=== PATIENT | female | born 1995 | race Caucasian/White ===

== ENCOUNTER 2017-06-17 17:24 | Emergency (ER) | payer OTHER ==
[2017-06-17 17:29] VITALS: BP 109/53; PULSE 77; RESP 20; TEMP 97.7
[2017-06-17] MEDS ORDERED: IBUPROFEN 600 MG TAB PO STA (17:50)
--- NOTE | 2017-06-17 18:08 | XR ---
EXAMINATION TYPE: XR ankle complete RT, XR foot complete RT DATE OF EXAM: 06/17/2017 CLINICAL HISTORY: Pain and swelling after fall injury today. TECHNIQUE: Frontal, lateral and oblique images of the right ankle and foot are obtained. COMPARISON: None. FINDINGS: There is no acute fracture/dislocation evident in the right ankle. The ankle mortise appe ars within normal limits. The overlying soft tissue appears unremarkable. There is no acute fracture or dislocation evident in the right foot. The joint spaces in the right f oot are preserved. Flexion in the toes is present. Overlying soft tissue is unremarkable. IMPRESSION: There is no acute fracture or dislocation in the right ankle or foot.
--- NOTE | 2017-06-17 18:37 | ED ---
General Adult HPI - General Chief complaint: Extremity Injury, Lower Stated complaint: rt ankle injury Time Seen by Provider: 06/17/17 17:44 Source: patient, RN notes reviewed Mode of arrival: ambulatory Limitations: physical limitation - History of Present Illness Initial comments: 22-year-old female presents to the emergency department for a chief complaint of right foot and ankle pain 3 hours. Patient states she was walking when she twisted her right ankle. Patient states she walked quite a ways on it and it started hurting. Patient states she kept it elevated at home but the pain worsened. Patient has not taken Motrin or Tylenol and did not ice it before coming to the emergency department. Patient denies any other injuries occurring from this. Patient did not hit her head or lose consciousness. She did not fall due to dizziness. Patient has no other complaints at this time including shortness of breath, chest pain, abdominal pain, nausea or vomiting, headache, or visual changes. - Related Data Home Medications Medication Instructions Recorded Confirmed Albuterol Inhaler [Ventolin Hfa 1 - 2 puff INHALATION RT-Q6H PRN 06/17/17 Inhaler] Budesonide/Formoterol Fumarate 2 puff INHALATION RT-BID 06/17/17 06/17/17 [Symbicort 160-4.5 Mcg Inhaler] Montelukast [Singulair] 10 mg PO DAILY 06/17/17 06/17/17 Previous Rx's Medication Instructions Recorded Ibuprofen [Motrin] 600 mg PO Q8HR PRN #20 tab 06/17/17 Allergies Allergy/AdvReac Type Severity Reaction Status Date / Time azithromycin [From Zithromax] Allergy Unknown Verified 06/17/17 18:06 ondansetron [From Zofran] Allergy Unknown Verified 06/17/17 18:06 Review of Systems ROS Statement: Those systems with pertinent positive or pertinent negative responses have been documented in the HPI. ROS Other: All systems not noted in ROS Statement are negative. Past Medical History Past Medical History: Asthma History of Any Multi-Drug Resistant Organisms: None Reported Past Surgical History: Ear Surgery, Orthopedic Surgery Past Psychological History: Anxiety Smoking Status: Never smoker Past Alcohol Use History: None Reported Past Drug Use History: None Reported General Exam Limitations: physical limitation General appearance: alert, in no apparent distress Head exam: Present: atraumatic, normocephalic, normal inspection Neck exam: Present: normal inspection, full ROM. Absent: tenderness, meningismus, lymphadenopathy Respiratory exam: Present: normal lung sounds bilaterally. Absent: respiratory distress, wheezes, rales, rhonchi, stridor Cardiovascular Exam: Present: regular rate, normal rhythm, normal heart sounds. Absent: systolic murmur, diastolic murmur, rubs, gallop, clicks Extremities exam: Present: tenderness (Patient complains of generalized tenderness in the ankle and foot. She does not allow me to touch her foot to properly examine it and says it hurts everywhere. Tenderness cannot be pinpointed.), normal capillary refill (Refill less than 2 seconds in the right lower extremity and pedal pulse 2+.), joint swelling (There is mild swelling inferior to the lateral malleolus on the right ankle), other. Absent: full ROM (Patient has limited range of motion in the left ankle and foot but she is able to move her toes and foot.), pedal edema, calf tenderness Course Vital Signs 06/17/17 17:27 Temperature 97.7 F Pulse Rate 77 Respiratory 20 Rate Blood Pressure 109/53 O2 Sat by Pulse 98 Oximetry Medical Decision Making - Medical Decision Making 22-year-old female presents to the emergency department for a chief complaint of right foot and ankle pain x 3 hours. Patient was walking when she rolled her right ankle. Patient walked on it for quite a ways afterwards. Patient then went home and rested it. She did not take Motrin or ice it. Patient came to the emergency department because it was hurting her. On exam patient will not allow me to touch the foot to examine it. She does have some lateral swelling below the lateral malleolus. She is able to move her toes but will not do full range of motion due to fear of pain. Pedal pulse 2+ and cap refill less than 2 seconds. Sensation intact. X-ray of the foot and ankle demonstrate no acute fractures or bony abnormalities. X-ray was reviewed by myself and Dr. Hutchins, after being read by the radiologist. Patients ankle was wrapped with an Eddi wrap. She was educated on the Rice method of therapy. She will take Motrin and Tylenol for pain. She will follow-up with primary care in 1-2 days. If symptoms worsen she will return to the emergency department. Disposition Clinical Impression: Ankle sprain Disposition: HOME SELF-CARE Condition: Good Instructions: Ankle Sprain (ED), RICE Therapy (ED) Additional Instructions: Please wrap, ice, rest, and elevate the right foot and ankle. Take Motrin and Tylenol for pain. Return to the emergency department if you have any worsening symptoms. Otherwise follow-up with your primary care physician in 1-2 days. Prescriptions: Ibuprofen [Motrin] 600 mg PO Q8HR PRN #20 tab PRN Reason: Pain Is patient prescribed a controlled substance at d/c from ED?: No Referrals: Dominguez Pena MD [Primary Care Provider] - 1-2 days Time of Disposition: 18:35
== END 2017-06-17 18:51 | disposition home or self-care (01) ==
LOC: EC 17:24
DX: S93.401A Sprain of unspecified ligament of right ankle, initial encounter (principal); J45.909 Unspecified asthma, uncomplicated; Z79.51 Long term (current) use of inhaled steroids; Z79.899 Other long term (current) drug therapy; Z88.1 Allergy status to other antibiotic agents; Z88.8 Allergy status to other drugs, medicaments and biological substances; X50.1XXA Overexertion from prolonged static or awkward postures, initial encounter; Y93.01 Activity, walking, marching and hiking; Y92.89 Other specified places as the place of occurrence of the external cause
CPT/HCPCS: 99283

== ENCOUNTER → 2017-07-13 | Outpatient (CLI) | payer OTHER ==
--- NOTE | 2017-07-14 07:29 | CT ---
EXAMINATION TYPE: CT brain wo/w con DATE OF EXAM: 07/13/2017 COMPARISON: NONE HISTORY: Short term memory loss CT DLP: 1505.2 mGycm, Automated exposure control for dose reduction was used. CONTRAST: Patient injected with 100 mL of Isovue 300. CT of the brain is performed utilizing 3 mm thick sections through the posterior fossa and 3 mm thick sections through the remaining calvarium. Study is performed within 24 hours of arrival to the hospital. No abnormal hyperdensity is present to suggest an acute intracranial hemorrhage. No mass lesion is evident. No acute infarcts are evident. No abnormal enhancement is evident. Ventricles and sulci are appropriate for the patient age. Paranasal sinuses and mastoid air cells within the [id number] are clear. IMPRESSIONS: 1. Normal pre and postcontrast CT brain. CT cervical spine. COMPARISON: None CT of the cervical spine is performed in the axial plane at 2 mm thick sections. Reconstructed image s in the coronal, and sagittal plane are reviewed on the computer. No acute fractures are evident. Vertebral body alignment is normal. Disc heights are preserved. Vertebral body heights are preserved. No spinal canal stenosis is evident. No neural foraminal stenosis is evident. IMPRESSIONS: 1. Normal CT cervical spine.
== END | disposition home or self-care (01) ==
LOC: RADCTMAIN 16:41
PROVIDERS: ATTEND Family Medicine
DX: R41.82 Altered mental status, unspecified (principal); Z88.1 Allergy status to other antibiotic agents; Z88.8 Allergy status to other drugs, medicaments and biological substances
CPT/HCPCS: 70470; Q9967